=== PATIENT | female | born 1965 | race Caucasian/White ===

== ENCOUNTER 2023-08-29 20:34 | Emergency (ER) | payer OTHER ==
[2023-08-29 20:42] VITALS: TEMP 98.1; BMI 29.6
[2023-08-29] MEDS ORDERED: MAG HYDROX/AL HYDROX/SIMETH 30 ML UNIT-DOSE CUP ONE (22:06)
[2023-08-29] MEDS ORDERED: FAMOTIDINE 20 MG/50 ML IVPB 20 MG/50 ML MG IVPB ONE (22:06)
[2023-08-29] MEDS ORDERED: ONDANSETRON 4 MG/2 ML VIAL ONE (22:06)
[2023-08-29] MEDS: SODIUM CHLORIDE 0.9% 500 ML INFUS.BAG IV ONE (22:23)
[2023-08-29] MEDS: ONDANSETRON 4 MG/2 ML VIAL IVPUSH ONE (22:23)
[2023-08-29] MEDS: FAMOTIDINE 20 MG/50 ML IVPB 20 MG/50 ML MG IVPB ONE (22:24)
[2023-08-29] MEDS: MAG HYDROX/AL HYDROX/SIMETH -MYLANTA- ORAL SUSPENSION PO ONE (22:24)
[2023-08-29 22:26] LABS: BASO % 0.9 % (0-2.0); EOS % 0.2 % (0-4.5); HEMATOCRIT 43.2 % (32.4-45.2); HEMOGLOBIN 14.2 GM/dL (10.7-15.3); LYMPH % 39.6 % (8-40); MCH 28.6 pg (25.7-33.7); MCHC 32.9 g/dl (32.0-36.0); MEAN CELL VOLUME 87.1 fl (80-96); MEAN PLT VOLUME 6.9 fl (7.5-11.1); MONO % 6.4 % (3.8-10.2); NEUT % 52.9 % (42.8-82.8); PLATELET COUNT 310 10^3/uL (134-434); RBC 4.96 M/mm3 (3.60-5.2); RDW 14.2 % (11.6-15.6); WHITE BLOOD COUNT 10.8 K/mm3 (4.0-10.0)
[2023-08-29 22:46] LABS: POTASSIUM 4.3 mmol/L (3.5-5.1)
[2023-08-29 22:49] LABS: CALCIUM 9.4 mg/dL (8.5-10.1)
[2023-08-29 22:50] LABS: ALBUMIN 4.4 g/dl (3.4-5.0); BLOOD UREA NITROGEN 18.4 mg/dL (7-18); MAGNESIUM 2.2 mg/dL (1.8-2.4)
[2023-08-29 22:53] LABS: CREATININE 0.9 mg/dL (0.55-1.3); PHOSPHOROUS 3.6 mg/dL (2.5-4.9)
[2023-08-29 22:54] LABS: BILIRUBIN,TOTAL 0.8 mg/dL (0.2-1); TOT PROT 7.8 g/dl (6.4-8.2)
[2023-08-30 00:16] VITALS: BP 136/68; PULSE 84; RESP 20
== END 2023-08-30 00:16 | disposition home or self-care (01) ==
LOC: JER 20:34
PROC: 3E033GC Introduction of Other Therapeutic Substance into Peripheral Vein, Percutaneous Approach (ICD-10-PCS; principal; 2023-08-29)
PROC: 3E033GC Introduction of Other Therapeutic Substance into Peripheral Vein, Percutaneous Approach (ICD-10-PCS; 2023-08-29)
DX: R11.2 Nausea with vomiting, unspecified (principal); Z20.822 Contact with and (suspected) exposure to COVID-19
CPT/HCPCS: 0241U-QW; 36415; 80053; 83690; 83735; 84100; 85025; 93005; 93010; 99284-25